=== PATIENT | female | born 1955 | race Caucasian/White ===

== ENCOUNTER 2018-08-25 13:03 | Day surgery (SDC) | payer BC, OTHER ==
[2018-08-25] MEDS ORDERED: LIDOCAINE 1% 300 MG/30 ML SDV ONE (13:05)
[2018-08-25] MEDS ORDERED: ROPIVACAINE HCL 150 MG/30 ML INJ ONE (13:05)
[2018-08-25] MEDS ORDERED: BACITRACIN 50,000 UNITS/10 ML SYR IRR ONE (13:06)
[2018-08-25] MEDS ORDERED: DEXAMETHASONE 4 MG/ML VIAL ONE (13:06)
[2018-08-25] MEDS ORDERED: BUPIVACAINE 0.5% 30 ML SDV ONE (13:06)
[2018-08-25] MEDS ORDERED: LR 1,000 ML IV ONE (13:36)
[2018-08-25] MEDS ORDERED: ceFAZolin 2 GM/DEXTROSE 100 ML IV ONE (14:29)
[2018-08-25] MEDS ORDERED: MIDAZOLAM 2 MG/2 ML VIAL IVP ONE (14:40)
--- NOTE | 2018-08-25 14:40 | PDANEPAE ---
ANE History of Present Illness 62 yo for bunionectomy ANE Past Medical History - Cardiovascular History Hx Hypertension: No Hx Arrhythmias: No Hx Chest Pain: No Hx Coronary Artery / Peripheral Vascular Disease: No Hx CHF / Valvular Disease: No Hx Palpitations: No - Pulmonary History Hx COPD: No Hx Asthma/Reactive Airway Disease: No Hx Recent Upper Respiratory Infection: No Hx Oxygen in Use at Home: No Hx Sleep Apnea: No Sleep Apnea Screening Result - Last Documented: Negative - Neurologic History Hx Cerebrovascular Accident: No Hx Seizures: No Hx Dementia: No - Endocrine History Hx Diabetes: No - Renal History Hx Renal Disorders: No - Liver History Hx Hepatic Disorders: No - Neurological & Psychiatric Hx Hx Neurological and Psychiatric Disorders: No - Cancer History Hx Cancer: No - Congenital Disorder History Hx Congenital Disorders: No - GI History Hx Gastrointestinal Disorders: Yes Gastrointestinal History Comment: gluten causes GI distess - Other Health History Other Health History: none - Chronic Pain History Chronic Pain: No - Surgical History Prior Surgeries: colonoscopy. 2016 wrist sx. 2015 shoulder scope ANE Review of Systems Review of Systems: - Exercise capacity METS (RN): 5 METS ANE Patient History - Allergies Allergies/Adverse Reactions: gluten Allergy (Verified 08/17/18 09:06) - Home Medications Home medications: home medication list seen and reviewed Home Medications: Calcium Carbonate [Oyster Shell Calcium 500 mg (*)] 500 mg PO DAILY 08/17/18 [ Last Taken 08/25/18] Estradiol [Estrace Vaginal (*)] 1 denia VG Q7D 08/17/18 [Last Taken 1 Week Ago ~] Multivitamins [Multivitamin (*)] 1 each PO DAILY 08/17/18 [Last Taken 08/25/18] Tretinoin [Retin-A] 1 denia TP DAILY 08/17/18 [Last Taken 2 Days Ago ~08/23/18] - NPO status NPO Status: no food or drink >8 hours NPO Since - Liquids (Date): 08/25/18 NPO Since - Liquids (Time): 11:10 NPO Since - Solids (Date): 08/25/18 NPO Since - Solids (Time): 07:00 - Anes Hx Anes Hx: no prior problems - Smoking Hx Smoking Status: Never smoked - Family Anes Hx Family Hx Anesthesia Complications: none ANE Labs/Vital Signs - Vital Signs Blood Pressure: 118/82 Heart Rate: 77 Respiratory Rate: 14 O2 Sat (%): 97 Height: 5 ft 6 in Weight: 60.328 kg ANE Physical Exam - Airway Neck exam: FROM Mallampati Score: Class 2 Mouth exam: normal dental/mouth exam - Pulmonary Pulmonary: no respiratory distress - Cardiovascular Cardiovascular: regular rate and rhythym - ASA Status ASA Status: II ANE Anesthesia Plan Anesthesia Plan: MAC
[2018-08-25] MEDS ORDERED: PROPOFOL/EMULSION 500 MG/50 ML BOTTLE IV ONE (14:44)
--- NOTE | 2018-08-25 14:50 | PDHPUP ---
History & Physical Update H&P update statement: This history and physical update is based on an assessment of the patient which was completed after admission or registration (within 24 hours), but prior to the surgery/procedure. H&P update: H&P reviewed & patient examined (stable in good health, no changes) , no change in patient's condition since H&P completed H&P changes: no changes in health. Stable , in good spirits.
[2018-08-25] MEDS ORDERED: oxyCODONE IR 5 MG TAB PO PRN (16:40)
[2018-08-25] MEDS ORDERED: NALOXONE HCL 0.4 MG/ML INJ IVP PRN (16:40)
[2018-08-25] MEDS ORDERED: fentaNYL 100 MCG/2 ML INJ IVP PRN (16:40)
[2018-08-25] MEDS ORDERED: ONDANSETRON 4 MG/2 ML VIAL IVP PRN (16:40)
--- NOTE | 2018-08-25 16:52 | POSTOPPROG ---
Post Op Note Date of Operation: 08/25/18 Surgeon: Venice Almaguer Lightning Rod Installer: Lindsay Almaguer Anesthesiologist: Kendall Escobar Pre-op Diagnosis: hallux valgus with hallux rigidus with osteoarthritis first MTPJ, left Post-op Diagnosis: same Indication: pain Procedure: bunionectomy with decompression osteotomy first MTPJ, left Findings: osteopenia, articular defects first MTH Inf/Abcess present in the surg proc area at time of surgery?: No EBL: Minimal Complications: none
[2018-08-25] MEDS ORDERED: KETOROLAC 30 MG/1 ML SDV IVP ONE (16:59)
--- NOTE | 2018-08-25 17:03 | POSTANESTH ---
Post Anesthetic Evaluation Cardiovascular Status: Normal, Stable Respiratory Status: Normal, Stable Level of Consciousness/Mental Status: Can Participate in Eval Pain Control: Adequate, Prn Tx Ordered Nausea/Vomiting Control: Adequate, Prn Tx Ordered Complications Possibly Related to Anesthesia: None Noted
[2018-08-25] MEDS ORDERED: KETOROLAC 30 MG/1 ML SDV ONE (17:15)
--- NOTE | 2018-08-25 18:40 | GOP ---
[f rep st] OPERATIVE REPORT DATE OF OPERATION: 08/25/2018 SURGEON: Venice Almaguer DPM NEUROSURGEON: Mary Almaguer DPM. DIAMOND SIZER: Lindsay Almaguer DPM. ANESTHESIA: IV sedation with local. ANESTHESIOLOGIST: Micah Escobar MD. PREOPERATIVE DIAGNOSIS: 1. Painful hallux valgus with hallux rigidus deformity and osteoarthritis, first metatarsophalangeal joint, left foot. 2. Soft tissue mass, plantar aspect, base of the third digit, left foot. POSTOPERATIVE DIAGNOSIS: 1. Painful hallux valgus with hallux rigidus deformity and osteoarthritis, first metatarsophalangeal joint, left foot. 2. Soft tissue mass, plantar aspect, base of the third digit, left foot. PROCEDURE PERFORMED: Bunionectomy with decompression, osteotomy first metatarsal, left foot; excisio n of soft tissue mass, plantar aspect, third digit, left foot. FINDINGS: INDICATIONS: The patient presented to the hospital approximately an hour and a half prior to foot valdez rgery after being n.p.o. past midnight. The patient's preoperative history and physical and all lab studies were reviewed and there were no contraindications to the proposed procedures. The patient wa s given Ancef 2 g IV one half hour prior to foot surgery. DESCRIPTION OF PROCEDURE: The patient was taken to the OR room and placed on the OR table in supine position where the appropriate anesthetic agents were administered. This was supplemented with local blocks to the left foot utilizing a total of 7 mL of 1% lidocaine plain with 15 mL of 0.5% ropivacai ne. The blocks were given to the posterior tibial nerve as it courses through the tarsal tunnel and to the base of the first metatarsal in a Solano block fashion and proximal to the third metatarsal head . The left lower extremity was then prepped and draped in the usual aseptic fashion and covered with sterile stockinette. A sterile pneumatic ankle tourniquet was applied and padded well underneath wi th Webril. Utilizing elevation overlying Esmarch bandage, the left foot was exsanguinated and the to urniquet was inflated to a pressure of 220 mmHg. The foot was then lowered to the orthopedic table. Attention was then directed to the dorsomedial aspect of the first metatarsophalangeal joint, left fo ot, where an approximate 5 cm linear longitudinal incision was made. The incision was made medial to the extensor hallucis longus tendon. The incision was deepened through the subcutaneous tissues to the level of the capsular tissues, taking care to preserve the neurovascular structures. Any bleeder s were clamped and cauterized as needed. Subcutaneous tissues were reflected off the dorsal medial a spect of the capsular tissues of the first metatarsophalangeal joint. A linear capsular incision was made in the same plane as the skin incision. The capsular tissues were reflected off the dorsal med ial aspects of the first metatarsal head and base of the proximal phalanx. The hypertrophic bone not ed to the perimeter of the base of the proximal phalanx was resected with a rongeur. The hypertrophi c bone on the dorsal medial aspects of the first metatarsal head was resected with a sagittal saw and placed on the back table. At this point of time, it was noted that her bone was osteopenic. First metatarsophalangeal joint was inspected and the medial half of the articular cartilage to the head of the first metatarsal was denuded to subchondral bone in a linear fashion involving approximately 1/3 of the first metatarsal head. Similar findings were noted to the medial 1/3 of the base of the prox imal phalanx, but there were also articular fragments. The loose articular fragments were excised sh arply and placed on the back table. The area of the chondral defects was drilled with a K-wire. The surgical site was copiously irrigated with sterile saline/bacitracin solution. A K-wire was then ad vanced in a [id number] direction through the center and slightly plantar to the head of the fi rst metatarsal to serve as an axis guide for the osteotomies. The first osteotomy was initiated with the K-wire and extended plantarly and proximally so as to exit just proximal to the sesamoid apparat us. The second osteotomy was created, initiated with the K-wire and extended dorsally and proximally . The K-wire was removed and the first metatarsal head was held stable and a third osteotomy was cre ated to excise a wedge of bone from the dorsal aspect of the first metatarsal. This third osteotomy was created just proximal to the second osteotomy, thus to excise approximately 3 mm of bone. The cristian ne wedge was excised and placed on the back table. The surgical site was again copiously irrigated w ith sterile saline/bacitracin solution. The head of the first metatarsal was then shifted laterally approximately 5 mm and then placed flush against the distal first metatarsal. The osteotomy site was stabilized with the 2 guidewires utilized for the headless Arthrex screw system, which were placed i n a dorsal distal to plantar proximal direction. A C-arm was utilized to check alignment of the guid ewires, which were optimal. Utilizing a standard technique with a headless Arthrex screw system, two 2.5 headless screws were placed across the guidewires; one screw measured 16 mm in length and the ot her 14 mm in length. The gutters were removed and the osteotomy site was checked and it was stable a nd in good alignment. The medial ledge of bone was resected utilizing the sagittal saw and placed on the back table. Any prominent bony borders were remodeled to a smooth surface utilizing the powered rasp. The ostomy site was stable and well aligned. A C-arm was again utilized to check alignment, which was optimal. Range of motion of the first metatarsophalangeal joint was smooth and concentric. The capsular tissues reapproximated with 2-0 and 3-0 Vicryl. The subcutaneous tissues reapproximat ed with Monocryl and the skin was reapproximated utilizing 4-0 Prolene with interrupted horizontal ma ttress sutures. Attention was then directed to the plantar aspect base of the third digit where an approximate 1 cm l inear longitudinal incision was made centered over the palpable soft tissue mass. The incision was d eepened through to the level of subcutaneous tissues to the level of the identified soft tissue mass, which was soft, white, but with bluish discoloration within. This soft tissue mass was freed from t he surrounding soft tissue structures and placed on the back table and sent for pathologic evaluation . The remaining tissue appeared normal without irregularity. The flexor tendon was intact. The charbel gical site was copiously irrigated with a sterile saline/bacitracin solution. The skin was reapproxi mated with 4-0 Prolene utilizing interrupted horizontal mattress sutures. The tourniquet was release d prior to skin closures and there was immediate capillary refill to all digits and there was hemosta sis. A mildly compressive dry, sterile gauze dressing was applied with Xeroform, 4 x 4 gauze, Ester and an Emery bandage. Prior to application of the sterile gauze dressing, an additional 4 mL of 0.5% r opivacaine was given proximal to the surgical sites. The patient tolerated the procedure and anesthesia well and transferred to the recovery room with vit al signs stable and vascular status intact to the left lower extremity. In the recovery room, the pa tina received postoperative oral and written home care instructions. The patient instructed to wear the cast at all times when weightbearing. The patient to utilize crutches for ambulation assist for the first 2 days to help off-weight the forefoot. She is permitted to bear weight on the heel for b alance. Prescription will be given for promethazine and Percocet to take postoperatively as prescrib ed for pain. Orders are written for the patient to receive 30 mg of Toradol prior to discharge from the hospital. Postoperative radiographs were ordered for the left foot. Orders written for the heather ent to be sent a Cryo/Cuff and she was instructed on its usage. The procedure went well without comp lications. She is scheduled for first postoperative visit in 2 days. Supposed to call the office [facility] if any questions or problems should arise. Her was informed of the osteopenia that was identified at the time of surgery. /[id number]/MODL
[2018-08-25 19:09] VITALS: BP 117/77
== END 2018-08-25 19:09 | disposition home or self-care (01) ==
LOC: FSGY 13:03 → UNDOADMOB 13:03 → F3N 13:03 → EDSTATUS 14:15 → UNDODISOB 19:00 → FSGY 19:09
PROVIDERS: ATTEND Podiatrist
DX: M20.12 Hallux valgus (acquired), left foot (principal); M20.22 Hallux rigidus, left foot; M79.9 Soft tissue disorder, unspecified; M85.89 Other specified disorders of bone density and structure, multiple sites
CPT/HCPCS: C1713; J0690; J1100; J1885; J2250; J2704; J2795